=== PATIENT | male | born 1950 ===

== ENCOUNTER 2018-07-13 20:33 | Emergency (ER) | payer OTHER ==
[2018-07-13 20:58] VITALS: RESP 20; O2SAT 98
--- NOTE | 2018-07-13 21:52 | C.PDOC ---
History Of Present Illness 68 y/o M p/w headache x 4 months. Pain is intermittent, seems to occur around the L sided ear, sometimes to the R parietal area, sometimes to the R shoulder and feels a "hot pain" down the R arm. Patient states he has about every day for 4 months, has not had evaluated although he has told his PMD about it. He denies fever, chills, chest pain, dyspnea, vision change, vomiting, tinnitus, taste changes. Time Seen by Provider: 07/13/18 21:38 Chief Complaint (Nursing): Headache Past Medical History Vital Signs: Last Vital Signs Temp 98.6 F 07/13/18 20:47 Pulse 64 07/13/18 20:47 Resp 20 07/13/18 20:47 BP 161/73 H 07/13/18 20:47 Pulse Ox 98 07/13/18 20:47 - Medical History PMH: Arthritis, HTN Family History: States: Unknown Family Hx - Social History Hx Tobacco Use: No Hx Alcohol Use: Yes Hx Substance Use: No - Immunization History Hx Tetanus Toxoid Vaccination: No Hx Influenza Vaccination: No Hx Pneumococcal Vaccination: No Review Of Systems Except As Marked, All Systems Reviewed And Found Negative. Constitutional: Negative for: Fever Cardiovascular: Negative for: Chest Pain Physical Exam - Physical Exam Additional Physical Exam Comments: Constitutional: No acute distress. Head: Normocephalic. Atraumatic. Eyes: PERRL. No ptosis. ENT: TM normal. No ear erythema or edema. No mastoid tenderness or ecchymosis. Neck: No pulsatile mass. No bruits. No midline tenderness. No nuchal rigidity. Cardiovascular: Regular rate. Temporal arteries 2+ bilaterally. Chest: No tenderness. Respiratory: Clear to auscultation bilaterally. GI: Soft. Nontender. Nondistended. Back: No CVA tenderness. Musculoskeletal: No tenderness or swelling of extremities. Skin: No rash. Neurologic: Alert, no focal deficit. Motor 5/5 bilaterally. ED Course And Treatment O2 Sat by Pulse Oximetry: 98 Medical Decision Making Medical Decision Making: Will obtain CT. Informed patient and family that further follow up will be required for further diagnosis as outpatient. No emergent findings during this ED visit. Ct head EXAM: CT Head without Intravenous Contrast. CLINICAL HISTORY: HEADACHE TECHNIQUE: Axial computed tomography images of the head/brain without intravenous contrast. 1160 mGy-cm COMPARISON: None provided. FINDINGS: BRAIN Chronic periventricular and subcortical microvascular disease is seen. VENTRICLES: There is generalized parenchymal atrophy noted as demonstrated by symmetrical dilatation of ventricles and sulci. ORBITS: The orbits are unremarkable. SINUSES AND MASTOIDS: The paranasal sinuses and mastoid air cells are clear. BONES: No fracture. SOFT TISSUES: Unremarkable. MISCELLANEOUS: No acute intracranial pathology. IMPRESSION: 1. There is generalized parenchymal atrophy noted as demonstrated by symmetrical dilatation of ventricles and sulci. 2. Chronic periventricular and subcortical microvascular disease is seen. 3. No acute intracranial pathology. Electronically signed on Jul 13, 2018 10:34:08 PM EST by: Salinas Augustin M.D., [place] Certified By [facility] [employer] [facility] Fellowship Trained MRI and CT Specialist Disposition - Disposition Disposition: HOME/ ROUTINE Disposition Time: 22:40 Condition: STABLE Instructions: Headache, Adult (DC) Forms: [employer] ([place]) - Clinical Impression Clinical Impression: Headache
[2018-07-13 22:45] VITALS: BP 111/61; PULSE 81; TEMP 98
--- NOTE | 2018-07-14 06:49 | CT ---
Date of service: 07/13/2018 PROCEDURE: CT HEAD WITHOUT CONTRAST. HISTORY: headache COMPARISON: 08/26/2011 TECHNIQUE: Axial computed tomography images were obtained through the head/brain without intravenous contrast. Radiation dose: Total exam DLP = 1160.57 mGy-cm. This CT exam was performed using one or more of the following dose reduction techniques: Automated exposure control, adjustment of the mA and/or kV according to patient size, and/or use of iterative reconstruction technique. FINDINGS: HEMORRHAGE: No intracranial hemorrhage. BRAIN: No mass effect or edema. Scattered focal lucencies in the subcortical and periventricular white matter suggestive for chronic microvascular ischemic change. Bilateral basal ganglia lacunar infarcts. Generalized parenchymal atrophy. VENTRICLES: Unremarkable. No hydrocephalus. CALVARIUM: Unremarkable. PARANASAL SINUSES: Unremarkable as visualized. No significant inflammatory changes. MASTOID AIR CELLS: Unremarkable as visualized. No inflammatory changes. OTHER FINDINGS: Deformities of the nasal bones. IMPRESSION: Chronic microvascular ischemic change. Bilateral basal ganglia lacunar infarcts. Generalized parenchymal atrophy. If symptoms persists, consider correlation with MRI. A preliminary report was generated at 10:34 p.m. on 07/13/[address] Salinas Augustin from [facility].
== END 2018-07-13 22:49 | disposition home or self-care (01) ==
LOC: C.ER 20:33
DX: R51 Headache (principal)